=== PATIENT | male | born 1945 | race Caucasian/White ===

== ENCOUNTER → 2016-12-15 | Outpatient (CLI) | payer OTHER, MEDICARE ==
[~2016-12-15] MED LIST: ADULT LOW DOSE81 MG PO; ELIQUIS5 MG PO; FISH OIL 1,0001 EAC5 PO; HYDROCHLOROTH12.5 MG PO; HYDROCODONE-AP1 EAC6 PO; LIORESAL 10 MG10 MG PO; MELOXICAM7.5 MG PO; OMEPRAZOLE20 M2 PO; PHENERGAN 25 MG25 M1 PO; PRADAXA150 MG PO; PRILOSEC 20 MG20 MG PO; PRILOSEC20 MG PO; SORINE 80 MG TA80 M1 PO; TOPROL XL50 MG PO
== END ==
LOC: GI 06:09
DX: K26.9 Duodenal ulcer, unspecified as acute or chronic, without hemorrhage or perforation (principal); K31.5 Obstruction of duodenum

== ENCOUNTER → 2016-12-20 | Outpatient (CLI) | payer OTHER, MEDICARE | LOC: RAD 07:13 | DX: R14.0 Abdominal distension (gaseous) (principal) ==

== ENCOUNTER → 2017-07-28 | Outpatient (CLI) | payer OTHER, MEDICARE | LOC: MRI 09:04 | DX: S83.241A Other tear of medial meniscus, current injury, right knee, initial encounter (principal); M71.21 Synovial cyst of popliteal space [Baker], right knee; M25.461 Effusion, right knee; X58.XXXA Exposure to other specified factors, initial encounter; Y93.89 Activity, other specified; Y92.89 Other specified places as the place of occurrence of the external cause; Y99.8 Other external cause status ==